=== PATIENT | male | born 1980 | race Caucasian/White ===

== ENCOUNTER 2019-07-13 09:15 | Emergency (ER) | payer OTHER ==
[~2019-07-13] VITALS: Ht 177.8 cm; Wt 83.4 kg
[~2019-07-13 09:15] MED LIST: KETO10TAB PO
[2019-07-13 09:16] VITALS: BP 144/86
[2019-07-13] MEDS ORDERED: ZANA4TAB PO (09:24)
[2019-07-13] MEDS ORDERED: CHOL100029 PO (09:24)
[2019-07-13] MEDS ORDERED: MULTCAP PO (09:24)
[2019-07-13] MEDS ORDERED: ACET325C5 PO (09:24)
[2019-07-13] MEDS ORDERED: CYCL10TA PO (10:05)
[2019-07-13] MEDS ORDERED: LIDO5DIS41 TD (10:05)
[2019-07-13] MEDS ORDERED: PERC5TAB12 PO (10:05)
== END 2019-07-13 10:10 | disposition home or self-care (01) ==
LOC: M ED 09:15
DX: M54.5 Low back pain (principal); G89.29 Other chronic pain; Z87.891 Personal history of nicotine dependence; Z79.899 Other long term (current) drug therapy

== ENCOUNTER 2019-11-22 17:23 | Emergency (ER) | payer OTHER ==
[~2019-11-22] VITALS: Ht 177.8 cm; Wt 87.9 kg
[~2019-11-22 17:23] MED LIST changes: +ACET325C5 PO; +CHOL100029 PO; +CYCL10TA PO; +LIDO5DIS41 TD; +MULTCAP PO; +PERC5TAB12 PO; +ZANA4TAB PO
[2019-11-22] MEDS ORDERED: MOBI15TA PO (17:28)
[2019-11-22 18:24] LABS: INFLUENZA A AMPLIFICATION NEGATIVE (NEGATIVE); INFLUENZA B AMPLIFICATION NEGATIVE (NEGATIVE)
[2019-11-22 19:54] VITALS: BP 130/84
== END 2019-11-22 19:57 | disposition home or self-care (01) ==
LOC: M ED 17:23
DX: J06.9 Acute upper respiratory infection, unspecified (principal); B34.9 Viral infection, unspecified; M54.9 Dorsalgia, unspecified; G89.29 Other chronic pain; Z79.899 Other long term (current) drug therapy

== ENCOUNTER → 2021-07-18 | Outpatient (REF) ==
[~2021-07-18] MED LIST changes: +CYCL-707 PO; -CYCL10TA PO; +MOBI15TA PO
--- NOTE | 2021-07-19 05:46 | REP ---
INDICATION: PAIN. COMPARISON: None. TECHNIQUE: AP, lateral, swimmer's and open-mouth views of the cervical spine FINDINGS: Alignment and lordosis maintained. No acute fracture/compression injury or subluxation. Endplate sclerosis with mild disc space narrowing noted at C5-6 and to a lesser extent C4-5 and C6-7. Open mouth view demonstrates normal C1-C2 articulation and odontoid process. IMPRESSION: Mild degenerative spondylosis. <Electronically signed by Rajeev Fabian > 07/19/21 [id number]
--- NOTE | 2021-07-19 05:47 | REP ---
INDICATION: PAIN COMPARISON: None. TECHNIQUE: Internal rotation, external rotation, and Y view. FINDINGS: No acute fracture or dislocation. The acromioclavicular and glenohumeral joints are intact. No periarticular calcifications or degenerative changes are appreciated. Sub acromial space is normal. Surrounding soft tissues are unremarkable. IMPRESSION: Normal age-appropriate left shoulder radiographs. <Electronically signed by Rajeev Fabian > 07/19/21 [id number]
== END ==
LOC: M PLAIMG 13:04
PROVIDERS: ATTEND Internal Medicine
DX: M25.512 Pain in left shoulder (principal); M54.2 Cervicalgia; M47.22 Other spondylosis with radiculopathy, cervical region

== ENCOUNTER 2022-02-12 11:03 | Emergency (ER) | payer OTHER ==
[~2022-02-12] VITALS: Ht 177.8 cm; Wt 90.4 kg
[2022-02-12] MEDS ORDERED: TIZA10TA (13:46)
[2022-02-12 17:38] VITALS: BP 138/83
== END 2022-02-12 17:40 | disposition home or self-care (01) ==
LOC: M ED 11:03
DX: R22.31 Localized swelling, mass and lump, right upper limb (principal); G89.29 Other chronic pain; M54.9 Dorsalgia, unspecified; F17.210 Nicotine dependence, cigarettes, uncomplicated

== ENCOUNTER → 2022-02-13 | Outpatient (REF) ==
[~2022-02-13] MED LIST changes: +TIZA10TA
== END ==
LOC: M PLAIMG 08:30
PROVIDERS: ATTEND Internal Medicine
DX: R52 Pain, unspecified (principal); R06.02 Shortness of breath; M50.221 Other cervical disc displacement at C4-C5 level; M50.222 Other cervical disc displacement at C5-C6 level; M51.36 Other intervertebral disc degeneration, lumbar region

== ENCOUNTER 2024-02-05 22:59 | Emergency (ER) | payer OTHER ==
[~2024-02-05] VITALS: Ht 180.3 cm; Wt 82.7 kg
[2024-02-06 01:33] VITALS: BP 128/72; TEMP 97.8; O2SAT 98
== END 2024-02-06 01:34 | disposition home or self-care (01) ==
LOC: M ED 22:59
DX: F43.0 Acute stress reaction (principal); F10.10 Alcohol abuse, uncomplicated; Z87.820 Personal history of traumatic brain injury; Z79.899 Other long term (current) drug therapy

== ENCOUNTER → 2024-08-06 | Outpatient (REF) | payer OTHER | LOC: M SMT 13:02 | PROVIDERS: ATTEND Urology | DX: Z30.2 Encounter for sterilization (principal) ==

== ENCOUNTER → 2024-10-25 | Outpatient (REF) | payer OTHER ==
[2024-10-25 12:15] LABS: SEMEN APPEARANCE OPAQUE (OPAQUE); SEMEN VISCOSITY LIQUID (LIQUID); SEMEN VOLUME 1.5 ml (2.0-5.0); WBC CONCENTRATION >1 M/ml (<=1 M/ml)
== END ==
LOC: M SMT 11:25
PROVIDERS: ATTEND Urology
DX: Z30.8 Encounter for other contraceptive management (principal)

== ENCOUNTER → 2025-01-28 | Outpatient (REF) | payer OTHER ==
[2025-01-28 12:44] LABS: SEMEN APPEARANCE OPAQUE (OPAQUE); SEMEN VISCOSITY LIQUID (LIQUID); SEMEN VOLUME 1.5 ml (2.0-5.0); WBC CONCENTRATION <=1 M/ml (<=1 M/ml)
== END ==
LOC: M SMT 12:25
PROVIDERS: ATTEND Urology
DX: Z30.8 Encounter for other contraceptive management (principal)